=== PATIENT | male | born 1955 | race Caucasian/White ===

== ENCOUNTER 2021-05-25 10:49 | Observation (INO) ==
[2021-05-25] MEDS ORDERED: 0.9 % Sodium Chloride 1,000 ML IVC ONE (11:03)
[2021-05-25 11:25] LABS: Basophils % 0.3 %; Eosinophils # 0.3 K/mcL (0.0-0.6); Hematocrit 29.8 % (37.5-50.1); Hemoglobin 10.7 g/dL (12.9-16.9); Immature Granulocytes % 0.9 % (0-4); Lymphocytes # 0.8 K/mcL (0.6-4.6); Lymphocytes % 12.5 %; Mean Corpuscular HGB Conc 35.9 g/dL (31.6-35.5); Mean Corpuscular Hemoglobin 34.2 pg (28.0-33.3); Mean Corpuscular Volume 95.2 fL (83.0-100.0); Mean Platelet Volume 9.4 fL (9.4-12.4); Monocytes # 0.7 K/mcL (0.0-1.3); Monocytes % 9.9 %; Neutrophils # 4.7 K/mcL (1.6-8.9); Platelet Count 152 K/mcL (140-400); Red Blood Count 3.13 M/mcL (4.19-5.50); Red Cell Distribution Width 12.5 % (11.5-14.5); Segmented Neutrophils % 71.4 %; White Blood Count 6.6 K/mcL (4.3-11.1)
[2021-05-25 11:27] LABS: Bilirubin,Urine Negative (Negative); Blood,Urine Negative (Negative); Clarity,Urine Clear (Clear); Color,Urine Yellow (Yellow); Glucose,Urine (UA) 100 mg/dL (Normal); Ketones,Urine Negative (Negative); Leukocyte Esterase,Urine Negative (Negative); Nitrite,Urine Negative (Negative); Protein,Urine Negative (Neg-Trace); Specific Gravity,Urine 1.015 (1.010-1.025); Urobilinogen,Urine Normal (Normal)
[2021-05-25 11:40] LABS: Alanine Aminotransferase 25 Units/L (7-52); Albumin 3.7 g/dL (3.5-5.7); Albumin/Globulin Ratio 1.6 (1.1-2.2); Alkaline Phosphatase 57 Units/L (34-104); Aspartate Amino Transferase 14 Units/L (13-39); BUN/Creatinine Ratio 14 (6-26); Bilirubin,Total 0.8 mg/dL (0.3-1.0); Blood Urea Nitrogen 16 mg/dL (8-23); Calcium 7.8 mg/dL (8.6-10.3); Carbon Dioxide 24 mEq/L (23-29); Chloride 97 mEq/L (98-107); Globulin 2.3 g/dL (2.4-3.5); Glucose 115 mg/dL (70-105); Magnesium 1.6 mg/dL (1.6-2.6); Osmolality,Calculated 268 (280-300); Phosphorous 1.6 mg/dL (2.7-4.5); Potassium 3.7 mEq/L (3.5-5.1); Sodium 128 mEq/L (136-145); eGFR For African Americans > 60 (> 60); eGFR For Non-African Americans > 60 (> 60)
[2021-05-25 11:43] LABS: Troponin I < 0.03 ng/mL (< 0.04)
[2021-05-25] MEDS ORDERED: Acetaminophen 325 MG TABLET PO PRN (13:47)
[2021-05-25] MEDS ORDERED: Ondansetron ODT 4 MG TAB.RAPDIS SL PRN (13:47)
[2021-05-25] MEDS ORDERED: Naloxone 0.4 MG/ML INJ IVP PRN (13:47)
[2021-05-25] MEDS: 0.9 % Sodium Chloride 1,000 ML IVC SCH ×2 (14:36→21:44)
[2021-05-25] MEDS: CEVIMELINE HCL 30 MG PO SCH (14:39)
[2021-05-25] MEDS: Lenalidomide [Revlimid] 10 MG Capsule PO SCH (14:39)
[2021-05-25] MEDS: carvediloL 6.25 MG TABLET PO SCH ×2 (14:40→20:57)
[2021-05-25] MEDS: Loratadine 10 MG TABLET PO SCH (14:40)
[2021-05-25] MEDS: Magnesium Oxide 400 MG TABLET PO SCH (14:41)
[2021-05-25] MEDS: lisinopriL 20 MG TABLET PO SCH (14:41)
[2021-05-25] MEDS: *HR* Enoxaparin 40 MG/0.4 ML SYRINGE SQ SCH (15:58)
[2021-05-25 16:20] LABS: BUN/Creatinine Ratio 12 (6-26); Blood Urea Nitrogen 13 mg/dL (8-23); Calcium 7.6 mg/dL (8.6-10.3); Carbon Dioxide 25 mEq/L (23-29); Chloride 100 mEq/L (98-107); Glucose 120 mg/dL (70-105); Osmolality,Calculated 271 (280-300); Potassium 3.7 mEq/L (3.5-5.1); Sodium 130 mEq/L (136-145); eGFR For African Americans > 60 (> 60); eGFR For Non-African Americans > 60 (> 60)
[2021-05-25] MEDS: Acyclovir 200 MG CAPSULE PO SCH (20:50)
[2021-05-25 22:57] LABS: Estimated Average Glucose 143 mg/dl; Hemoglobin A1C 6.6 %
[2021-05-26 04:24] VITALS: PULSE 65
[2021-05-26 04:28] LABS: Hemoglobin 10.2 g/dL (12.9-16.9); Mean Corpuscular HGB Conc 35.2 g/dL (31.6-35.5); Mean Corpuscular Hemoglobin 33.8 pg (28.0-33.3); Mean Platelet Volume 9.7 fL (9.4-12.4); Platelet Count 135 K/mcL (140-400); Red Blood Count 3.02 M/mcL (4.19-5.50); Red Cell Distribution Width 12.5 % (11.5-14.5); White Blood Count 5.8 K/mcL (4.3-11.1)
[2021-05-26 04:42] LABS: Alanine Aminotransferase 22 Units/L (7-52); Albumin 3.5 g/dL (3.5-5.7); Albumin/Globulin Ratio 1.6 (1.1-2.2); Alkaline Phosphatase 48 Units/L (34-104); Aspartate Amino Transferase 14 Units/L (13-39); BUN/Creatinine Ratio 11 (6-26); Bilirubin,Total 0.8 mg/dL (0.3-1.0); Blood Urea Nitrogen 11 mg/dL (8-23); Calcium 7.2 mg/dL (8.6-10.3); Carbon Dioxide 23 mEq/L (23-29); Chloride 102 mEq/L (98-107); Globulin 2.2 g/dL (2.4-3.5); Glucose 121 mg/dL (70-105); Osmolality,Calculated 273 (280-300); Potassium 3.8 mEq/L (3.5-5.1); Sodium 131 mEq/L (136-145); Total Protein 5.7 g/dL (6.4-8.9); eGFR For African Americans > 60 (> 60); eGFR For Non-African Americans > 60 (> 60)
[2021-05-26] MEDS: *HR* Enoxaparin 40 MG/0.4 ML SYRINGE SQ SCH (05:53)
[2021-05-26] MEDS ORDERED: *HR* Enoxaparin 40 MG/0.4 ML SYRINGE SQ SCH (06:00)
[2021-05-26 07:58] VITALS: BP 142/70; RESP 20; TEMP 97.8
[2021-05-26] MEDS: Magnesium Oxide 400 MG TABLET PO SCH (08:27)
[2021-05-26] MEDS: lisinopriL 20 MG TABLET PO SCH (08:27)
[2021-05-26] MEDS: Loratadine 10 MG TABLET PO SCH (08:28)
[2021-05-26] MEDS: carvediloL 6.25 MG TABLET PO SCH (08:28)
[2021-05-26] MEDS: CEVIMELINE HCL 30 MG PO SCH (08:28)
[2021-05-26] MEDS: Lenalidomide [Revlimid] 10 MG Capsule PO SCH (08:28)
[2021-05-26] MEDS: Acyclovir 200 MG CAPSULE PO SCH (08:28)
[2021-05-26 09:10] VITALS: O2SAT 100
== END 2021-05-26 11:25 | disposition home or self-care (01) ==
LOC: EMEROOGRE 10:49 → INPGRE 10:49
PROVIDERS: ADMIT Family Medicine; ATTEND Family Medicine

== ENCOUNTER 2021-10-10 14:06 | Inpatient (IN) ==
[2021-10-11] MEDS: *HR* Enoxaparin 40 MG/0.4 ML SYRINGE SQ SCH (05:24)
[2021-10-11 05:26] LABS: Basophils % 0.6 %; Eosinophils # 0.3 K/mcL (0.0-0.6); Eosinophils % 5.4 %; Hematocrit 26.6 % (37.5-50.1); Hemoglobin 9.6 g/dL (12.9-16.9); Immature Granulocytes % 0.6 % (0-4); Lymphocytes # 1.3 K/mcL (0.6-4.6); Lymphocytes % 24.7 %; Mean Corpuscular HGB Conc 36.1 g/dL (31.6-35.5); Mean Corpuscular Hemoglobin 35.3 pg (28.0-33.3); Mean Corpuscular Volume 97.8 fL (83.0-100.0); Mean Platelet Volume 9.2 fL (9.4-12.4); Monocytes # 0.7 K/mcL (0.0-1.3); Monocytes % 12.1 %; Red Blood Count 2.72 M/mcL (4.19-5.50); Red Cell Distribution Width 14.1 % (11.5-14.5); Segmented Neutrophils % 56.6 %; White Blood Count 5.4 K/mcL (4.3-11.1)
[2021-10-11 05:37] LABS: Calcium 7.7 mg/dL (8.6-10.3); Potassium 3.2 mEq/L (3.5-5.1)
[2021-10-11 05:55] LABS: Platelet Count 94 K/mcL (140-400)
[2021-10-11] MEDS: Dapagliflozin Propanediol [Farxiga] 10 MG PO SCH (08:14)
[2021-10-11] MEDS: CEVIMELINE HCL 30 MG PO SCH ×3 (08:14→20:59)
[2021-10-11] MEDS: lisinopriL 20 MG TABLET PO SCH (08:15)
[2021-10-11] MEDS: carvediloL 6.25 MG TABLET PO SCH ×2 (08:15→16:26)
[2021-10-11] MEDS: Loratadine 10 MG TABLET PO SCH (08:15)
[2021-10-11] MEDS: Cyanocobalamin (B-12) 1,000 MCG TABLET PO SCH (08:16)
[2021-10-11] MEDS: Spironolactone 12.5 MG TABLET PO SCH (08:16)
[2021-10-11] MEDS: Acyclovir 200 MG CAPSULE PO SCH ×2 (08:16→20:58)
[2021-10-11] MEDS: Aspirin Enteric Coated 81 MG Tablet PO SCH (08:16)
[2021-10-11 19:57] VITALS: O2SAT 97
[2021-10-12] MEDS: *HR* Enoxaparin 40 MG/0.4 ML SYRINGE SQ SCH (04:39)
[2021-10-12 07:11] VITALS: PULSE 78; RESP 18; TEMP 97.7
[2021-10-12] MEDS: lisinopriL 20 MG TABLET PO SCH (08:53)
[2021-10-12] MEDS: Spironolactone 12.5 MG TABLET PO SCH (08:53)
[2021-10-12] MEDS: Aspirin Enteric Coated 81 MG Tablet PO SCH (08:54)
[2021-10-12] MEDS: Loratadine 10 MG TABLET PO SCH (08:54)
[2021-10-12] MEDS: CEVIMELINE HCL 30 MG PO SCH ×2 (08:54→15:25)
[2021-10-12] MEDS: carvediloL 6.25 MG TABLET PO SCH ×2 (08:54→17:30)
[2021-10-12] MEDS: Dapagliflozin Propanediol [Farxiga] 10 MG PO SCH (08:54)
[2021-10-12] MEDS: Cyanocobalamin (B-12) 1,000 MCG TABLET PO SCH (08:54)
[2021-10-12] MEDS: Acyclovir 200 MG CAPSULE PO SCH (08:54)
[2021-10-12 09:01] VITALS: BP 128/75
== END 2021-10-12 17:30 | disposition home health service (06) | DRG 56 ==
LOC: INPGRE 21:00
PROVIDERS: ADMIT Family Medicine; ATTEND Family Medicine